=== PATIENT | male | born 1995 | race Two or more races ===

== ENCOUNTER 2023-07-21 05:20 | Emergency (ER) | payer BC, MEDICAID ==
[~2023-07-21] VITALS: Ht 175.3 cm; Wt 109.0 kg
[2023-07-21] MEDS ORDERED: TETANUS-DIPTH-ACEL PERTUSSIS 0.5ML SYR Tdap IM ONE (07:30)
[2023-07-21] MEDS ORDERED: NEOMYCIN-BACITRACIN-POLYM UNITDOSE PKG TOP OINT TOP ONE (07:30)
[2023-07-21] MEDS ORDERED: LIDOCAINE 2%HCL (LOCAL ANESTH.) INJ 20ML MDV ID ONE (07:30)
[2023-07-21] MEDS ORDERED: CEFD300C2 PO (08:24)
[2023-07-21] MEDS ORDERED: BACI1OIN45 EX (08:24)
[2023-07-21 08:25] VITALS: BP 119/71; PULSE 121; RESP 17; TEMP 97.9; O2SAT 98
== END 2023-07-21 08:41 | disposition home or self-care (01) ==
LOC: EDBD 05:20 → ER 05:20
DX: S01.511A Laceration without foreign body of lip, initial encounter (principal); Z79.899 Other long term (current) drug therapy; W22.8XXA Striking against or struck by other objects, initial encounter; Y93.89 Activity, other specified; Y92.89 Other specified places as the place of occurrence of the external cause; Y99.8 Other external cause status
CPT/HCPCS: 12011; 12051; 70450; 90471; 90715

== ENCOUNTER 2025-01-10 15:26 | Emergency (ER) | payer BC, MEDICAID ==
[~2025-01-10] VITALS: Ht 175.3 cm; Wt 90.0 kg
[~2025-01-10 15:26] MED LIST: BACI1OIN45 EX; CEFD300C2 PO
--- NOTE | 2025-01-10 15:48 | ED.PDOC ---
HPI Comments 29 year old male presents to the ED with a chief complaint of RT hand laceration onset today (01/10/25). Patient was trying to push ice into a glass jar, glass broke. Patient is currently experiencing laceration on RT 5th digit, thumb and palm. Denies any PMHx as well as fevers, chills, nausea, vomiting, diarrhea, headache, LOC. No other symptoms or modifying factors present at this time. Chief Complaint: Laceration Time Seen by MD: 15:40 Primary Care Provider: NONE Reviewed Notes: Nurses Notes, Medications, Allergies Allergies: Coded Allergies: NO KNOWN ALLERGIES (Unverified , 01/10/25) Home Meds Active Scripts Bacitracin-Polymyxin B (Neosporin [id number] Unit/gm) 1 Oin Oin, 1 OIN EX TID for 7 Days, #30 OIN Prov:OFELIA ASENCIO MD 07/21/23 Cefdinir (Cefdinir) 300 Mg Cap, 1 CAP PO BID, #14 CAP Prov:OFELIA ASENCIO MD 07/21/23 Information Source: Patient Mode of Arrival: Ambulatory Severity: Moderate Severity of Laceration: Controlled Bleeding Complexity: Simple Timing: Hours Prehospital treatment: None Laceration Location: Hand, Digit #1, Digit #5 Mechanism: Glass Last Tetanus: UTD Laceration Length (cm): 4 Skin Type: Linear Depth of Injury: Skin Tendon Injury: 0% Capillary Refill: < 3 seconds Tender: Moderate Past Medical History PAST MEDICAL HISTORY: Denies Surgical History: Denies all surgeries Family History Family History: Reviewed,noncontributory to illness Social History Smoker: Non-Smoker Alcohol: Occasionally Drugs: Denies Drug Use Lives In: Home Constitutional: denies: chills, diaphoresis, fatigue, fever, malaise, sweats, weakness, others EENTM: denies: blurred vision, double vision, ear bleeding, ear discharge, ear drainage, ear pain, ear ringing, eye pain, eye redness, hearing loss, mouth pain, mouth swelling, nasal discharge, nose bleeding, nose congestion, nose pain, photophobia, tearing, throat pain, throat swelling, voice changes, others Respiratory: denies: cough, hemoptysis, orthopnea, SOB at rest, shortness of breath, SOB with excertion, stridor, wheezing, others Cardiovascular: denies: chest pain, dizzy spells, diaphoresis, Dyspnea on exertion, edema, irregular heart beat, left arm pain, lightheadedness, palpitations, PND, syncope, others Gastrointestinal: denies: abdomen distended, abdominal pain, blood streaked bowels, constipated, diarrhea, dysphagia, difficulty swallowing, hematemesis, melena, nausea, poor appetite, poor fluid intake, rectal bleeding, rectal pain, vomiting, others Genitourinary: denies: burning, dysuria, flank pain, frequency, hematuria, incontinence, penile discharge, penile sore, pain, testicle pain, testicle swelling, urgency, others Neurological: denies: dizziness, fainting, headache, left sided numbness, left sided weakness, numbness, paresthesia, pre-existing deficit, right sided numbness, right sided weakness, seizure, speech problems, tingling, tremors, weakness, others Musculoskeletal: denies: back pain, gout, joint pain, joint swelling, muscle pain, muscle stiffness, neck pain, others Integumetry: reports: laceration (RT hand); denies: bruises, change in color, change in hair/nails, dryness, lesions, lumps, rash, wounds, others Allergic/Immunocompromised: denies: Difficulty Healing, Frequent Infections, Hives, Itching, others Hematologic/Lymphatic: denies: anemia, blood clots, easy bleeding, easy bruising, swollen glands, others Endocrine: denies: excessive hunger, excessive sweating, excessive thirst, excessive urination, flushing, intolerance to cold, intolerance to heat, unexplained weight gain, unexplained weight loss, others Psychiatric: denies: anxiety, bipolar disorder, depression, hopeless, panic disorder, schizophrenia, sleepless, suicidal, others All Other Systems: Reviewed and Negative Physical Exam General Appearance: Normal HEENT: Normal ENT Inspection, Pharynx Normal, TMs Normal Neck: Full Range of Motion, Non-Tender, Normal, Normal Inspection Respiratory: Chest Non-Tender, Lungs Clear, No Accessory Muscle Use, No R espiratory Distress, Normal Breath Sounds Cardiovascular: No Edema, No JVD, No Murmur, No Gallop, Normal Peripheral Pulses, Regular Rate/Rhythm Breast Exam: Deferred Gastrointestinal: No Organomegaly, Non Tender, No Pulsatile Mass, Normal Bowel Sounds, Soft Genitalia: Deferred Pelvic: Deferred Rectal: Deferred Extremities: No calf tenderness, Normal capillary refill, Normal inspection, Normal range of motion, Non-tender, No pedal edema Musculoskeletal : Apperance: Normal Neurologic: Alert, wire straightener II-XII nml as Tested, No Motor Deficits, Normal Affect, Normal Mood, No Sensory Deficits Cerebellar Function: Normal Reflexes: Normal Skin: Dry, Lacerations (4 cm laceration RT 5th digit, 1.5 cm laceration on RT thumb, 1.5 cm laceration on RT palm), Warm Lymphatic: No Adenopathy Was a procedure done? Was a procedure done?: Yes Sedation Sedation?: No Laceration Repair : Location RT 5th digit, thumb, palm Length 4 cm on 5th digit, 1.5 cm thumb, 1.5 cm palm Anesthetic: Lidocaine (4 ccs) Laceration Repair Prep: Saline, Betadine, Shur-Clens, by Irrigation, Manual Scrub Laceration Repair Wound Comple: epidermis/dermis repair Laceration Repair: Number of sutures (2 sutures on thumb, 1 suture on palm, 7 sutures on 5th digit ), Nylon (5.0), Simple Informed consent obtained: Yes Risks, benefits, and alternati: Yes Differential diagnosis Generic Laceration: Tendon Injury, Abrasion/Contusion, Laceration X-Ray, Labs, Meds, VS Vital Signs Date Time Temp Pulse Resp B/P (MAP) Pulse Ox O2 Delivery O2 Flow Rate FiO2 01/10/25 15:31 97.6 119 15 137/96 (110) 100 97.6 X-Ray, Labs, Meds, VS Comment Imaging: X-rays and CT scans were reviewed and interpreted by this provider, imaging shows no fractures and no pathological disease. Pending radiology review. Laboratory: Labs reviewed and interpreted by this provider. No significant abnormalities noted. Patient has prior medical visits reviewed. Med reconciliation performed Vital signs reviewed Time of 1ST Reevaluation: 16:10 Reevaluation 1ST: Unchanged Patient Education/Counseling: Diagnosis, Treatment, Need For Follow Up (Follow up in 7-10 days for suture removal) Family Education/Counseling: No Family Present Departure 1 Departure Time of Disposition: 16:26 Impression: Primary Impression: Hand laceration Qualified Codes: S61.411A - Laceration without foreign body of right hand, initial encounter Disposition: HOME / SELF CARE / HOMELESS Condition: Fair Discharged With: Self Critical Care Note Critical Care Time?: No Stability Stability form required: No Heart Score Heart Score: Heart Score Response (Comments) Value History N/A 0 EKG N/A 0 Age N/A 0 Risk Factors N/A 0 Troponin N/A 0 Total 0 I personally scribed for DIDI SIMSP ([email or web address]) on 01/10/25 at 15:48. Electronically submitted by Lorna Wynn ([email or web address]). I personally scribed for DIDI SIMS PAPER MACHINE OPERATOR ([email or web address]) on 01/10/25 at 16:12. Electronically submitted by Lorna Wynn ([email or web address]). DIDI SIMS Jan 10, 2025 15:48
[2025-01-10] MEDS: LIDOCAINE 1% HCL (LOCAL ANESTH.) INJ 20ML MDV IJ ONE (15:50)
[2025-01-10] MEDS: LIDOCAINE 1% HCL (LOCAL ANESTH.) INJ 20ML MDV ONE (15:50)
[2025-01-10 17:11] VITALS: BP 130/89; PULSE 102; RESP 20; TEMP 97.6; O2SAT 96
== END 2025-01-10 17:18 | disposition home or self-care (01) ==
LOC: ER 15:26
DX: S61.411A Laceration without foreign body of right hand, initial encounter (principal); W25.XXXA Contact with sharp glass, initial encounter; Y93.89 Activity, other specified; Y92.89 Other specified places as the place of occurrence of the external cause; Y99.8 Other external cause status
CPT/HCPCS: 12002; 99283; J2003

== ENCOUNTER 2025-01-20 07:52 | Emergency (ER) | payer MEDICAID ==
[~2025-01-20] VITALS: Ht 175.3 cm; Wt 95.6 kg
--- NOTE | 2025-01-20 08:05 | ED.PDOC ---
History of Present Illness HPI Comments THIS IS A 29 YEAR OLD MALE PRESENTING TO THE ED WITH CHIEF COMPLAINT OF SUTURE REMOVAL. PATIENT REPORTS THAT HE HAD SUTURES PLACED INTO HIS RIGHT HAND 10 DAYS AGO, ADVISED TO COME BACK AFTER THAT AMOUNT OF TIME FOR REMOVAL OF THEM. PATIENT DENIES ANY BLEEDING OR DISCHARGE. NO FURTHER SYMPTOMS AT THIS TIME. Chief Complaint: Suture Removal Time Seen by MD: 08:04 Primary Care Provider: NONE Reviewed Notes: Nurses Notes, Medications, Allergies Allergies: Coded Allergies: NO KNOWN ALLERGIES (Unverified , 01/10/25) Home Meds Active Scripts Bacitracin-Polymyxin B (Neosporin 500-71729 Unit/gm) 1 Oin Oin, 1 OIN EX TID for 7 Days, #30 OIN Prov:OFELIA ASENCIO MD 07/21/23 Cefdinir (Cefdinir) 300 Mg Cap, 1 CAP PO BID, #14 CAP Prov:OFELIA ASENCIO MD 07/21/23 Information Source: Patient Mode of Arrival: Ambulatory Severity: Mild Timing: Days Duration: Since onset Prehospital treatment: None Medication Refill: For: Other (SUTURE REMOVAL) Past Medical History PAST MEDICAL HISTORY: Denies Surgical History: Denies all surgeries Family History Family History: Reviewed,noncontributory to illness Social History Smoker: Non-Smoker Alcohol: Occasionally Drugs: Denies Drug Use Lives In: Home Constitutional: denies: chills, diaphoresis, fatigue, fever, malaise, sweats, weakness, others EENTM: denies: blurred vision, double vision, ear bleeding, ear discharge, ear drainage, ear pain, ear ringing, eye pain, eye redness, hearing loss, mouth pain, mouth swelling, nasal discharge, nose bleeding, nose congestion, nose pain, photophobia, tearing, throat pain, throat swelling, voice changes, others Respiratory: denies: cough, hemoptysis, orthopnea, SOB at rest, shortness of breath, SOB with excertion, stridor, wheezing, others Cardiovascular: denies: chest pain, dizzy spells, diaphoresis, Dyspnea on exertion, edema, irregular heart beat, left arm pain, lightheadedness, palpitations, PND, syncope, others Gastrointestinal: denies: abdomen distended, abdominal pain, blood streaked bowels, constipated, diarrhea, dysphagia, difficulty swallowing, hematemesis, melena, nausea, poor appetite, poor fluid intake, rectal bleeding, rectal pain, vomiting, others Genitourinary: denies: burning, dysuria, flank pain, frequency, hematuria, incontinence, penile discharge, penile sore, pain, testicle pain, testicle swelling, urgency, others Neurological: denies: dizziness, fainting, headache, left sided numbness, left sided weakness, numbness, paresthesia, pre-existing deficit, right sided numbness, right sided weakness, seizure, speech problems, tingling, tremors, weakness, others Musculoskeletal: denies: back pain, gout, joint pain, joint swelling, muscle pain, muscle stiffness, neck pain, others Integumetry: reports: laceration (RIGHT PALM REPAIRED. ), others (SUTURES TO RIGHT HAND); denies: bruises, change in color, change in hair/nails, dryness, lesions, lumps, rash, wounds Allergic/Immunocompromised: denies: Difficulty Healing, Frequent Infections, Hives, Itching, others Hematologic/Lymphatic: denies: anemia, blood clots, easy bleeding, easy bruising, swollen glands, others Endocrine: denies: excessive hunger, excessive sweating, excessive thirst, excessive urination, flushing, intolerance to cold, intolerance to heat, unexplained weight gain, unexplained weight loss, others Psychiatric: denies: anxiety, bipolar disorder, depression, hopeless, panic disorder, schizophrenia, sleepless, suicidal, others All Other Systems: Reviewed and Negative Physical Exam General Appearance: No Apparent Distress, Normal HEENT: Normal ENT Inspection, PERRL/EOMI, Pharynx Normal, TMs Normal Neck: Full Range of Motion, Non-Tender, Normal, Normal Inspection Respiratory: Chest Non-Tender, Lungs Clear, No Accessory Muscle Use, No Respiratory Distress, Normal Breath Sounds Cardiovascular: No Edema, No JVD, No Murmur, No Gallop, Normal Peripheral Pulses, Regular Rate/Rhythm Breast Exam: Deferred Gastrointestinal: No Organomegaly, Non Tender, No Pulsatile Mass, Normal Bowel Sounds, Soft Genitalia: Deferred Pelvic: Deferred Rectal: Deferred Extremities: No calf tenderness, Normal capillary refill, Normal inspection, Normal range of motion, Non-tender, No pedal edema Musculoskeletal : Apperance: Normal Neurologic: Alert, director of labor relations II-XII nml as Tested, No Motor Deficits, Normal Affect, Normal Mood, No Sensory Deficits Cerebellar Function: Normal Reflexes: Normal Skin: Dry, Lacerations (RIGHT PALM REPAIRED, HEALED, NO INFECTION SIGNS. ), Normal Color, Warm Peripheral Pulses: 2+ carotid (R), 2+ carotid (L) Lymphatic: No Adenopathy Was a procedure done? Was a procedure done?: No Differential Dx Considerations may include: SUTURE REMOVAL OF RIGHT PALM X-Ray, Labs, Meds, VS Vital Signs Date Time Temp Pulse Resp B/P (MAP) Pulse Ox O2 Delivery O2 Flow Rate FiO2 01/20/25 07:54 98.5 117 18 128/94 99 98.5 X-Ray, Labs, Meds, VS Comment EXTERNAL MEDICAL RECORDS REVIEWED: [NONE] INDEPENDENT HISTORIANS: [NONE] SOCIAL DETERMINANTS OF HEALTH: [NONE] LABS ORDERED: NONE REVIEWED AND INTERPRETED RESULTS: NONE IMAGING ORDERED: NONE TREATMENTS ORDERED: SUTURE REMOVAL TO RIGHT HAND PROCEDURES PERFORMED: NONE CRITICAL CARE TIME: NONE I HAVE DISCUSSED THE PATIENT WITH THE ATTENDING PHYSICIAN DR. HERRERA AND HE AGREES WITH THE PATIENT'S PLAN OF CARE AND DISPOSITION. BASED ON HISTORY OF PRESENT ILLNESS, AND PHYSICAL EXAM, PATIENT WILL BE DISCHARGED HOME. DISCUSSED PLAN FOR DISCHARGE HOME. SHARED DECISION MAKING: DISCUSSED WITH PATIENT THAT THEIR WORKUP WAS NORMAL. PATIENT INSTRUCTED TO FOLLOW UP WITH PRIMARY CARE PROVIDER IN 1-2 DAYS FOR RE- EVALUATION OF SYMPTOMS. PATIENT VERBALIZES UNDERSTANDING TO RETURN TO ED FOR NEW OR WORSENING SYMPTOMS OR IF FOLLOW UP WITH PCP CANNOT BE OBTAINED. PATIENT FEELS COMFORTABLE GOING HOME AT THIS TIME. ALL QUESTIONS ADDRESSED AT TIME OF DISCHARGE. Time of 1ST Reevaluation: 08:13 Reevaluation 1ST: Improved Patient Education/Counseling: Diagnosis, Treatment, Need For Follow Up Family Education/Counseling: Diagnosis, Treatment, No Family Present Medical Screening: No EMC Exist At This Time SEPSIS Sepsis Screen Date sepsis recognized/suspect: Jan 20, 2025 Time Sepsis recognized/suspect: 0757 Recent Procedure: No On Antibiotic Therapy: No Respiratory Rate >20: No Heart Rate >90: No Temp<36 C (96.8 F) or >38.3 C: No SBP <90 or MAP <65 mmHG: No New Acute Mental Status Change: No Is the patient on CPAP, BIPAP,: No Vital Signs Date Time Temp Pulse Resp B/P (MAP) Pulse Ox O2 Delivery O2 Flow Rate FiO2 01/20/25 07:54 98.5 117 18 128/94 99 98.5 Departure 1 Departure Time of Disposition: 08:13 Impression: Primary Impression: Visit for suture removal Disposition: HOME / SELF CARE / HOMELESS Condition: Stable Additional Instructions: FOLLOW-UP WITH PCP IN 1 TO 2 DAYS. TAKE MEDICATIONS PRESCRIBED. RETURN TO ED FOR ANY NEW OR WORSENING SYMPTOMS. Discharged With: Self Critical Care Note Critical Care Time?: No Stability Stability form required: No Heart Score Heart Score: Heart Score Response (Comments) Value History N/A 0 EKG N/A 0 Age N/A 0 Risk Factors N/A 0 Troponin N/A 0 Total 0 I personally scribed for TERRY JAVED ([email or web address]) on 01/20/25 at 08:05. Electronically submitted by Stephen Abrams ([email or web address]). I personally scribed for TERRY JAVED ([email or web address]) on 01/20/25 at 08:08. El ectronically submitted by Stephen Abrams ([email or web address]). I personally scribed for TERRY JAVED ([email or web address]) on 01/20/25 at 08:11. Elec tronically submitted by Stephen Abrams ([email or web address]). TERRY JAVED Jan 20, 2025 08:05
[2025-01-20 08:10] VITALS: BP 128/94; PULSE 117; RESP 18; TEMP 98.5; O2SAT 99
== END 2025-01-20 08:15 | disposition home or self-care (01) ==
LOC: ER 07:52
DX: S61.411D Laceration without foreign body of right hand, subsequent encounter (principal); F10.90 Alcohol use, unspecified, uncomplicated; Z79.899 Other long term (current) drug therapy; Z48.02 Encounter for removal of sutures; X58.XXXD Exposure to other specified factors, subsequent encounter; Y90.9 Presence of alcohol in blood, level not specified

== ENCOUNTER 2025-06-14 11:43 | Emergency (ER) | payer MEDICAID ==
[~2025-06-14] VITALS: Ht 175.3 cm; Wt 96.9 kg
[2025-06-14] MEDS: HYDROcodone-ACET 10/325MG TAB PO ONE (12:50)
--- NOTE | 2025-06-14 13:00 | DVH ---
CHEST RADIOGRAPH INDICATION: fall TECHNIQUE: XY CHEST TWO VIEWS ROUTINE Comparison: None FINDINGS: The cardiac silhouette is unremarkable. The lungs demonstrate no pulmonary airspace consolidation. The pulmonary vasculature is mildly prominent. There is no pleural effusion. There is no pneumothorax. IMPRESSION: Mild pulmonary vasculature congestion.
--- NOTE | 2025-06-14 13:13 | ED.PDOC ---
History of Present Illness HPI Comments 30 y/o obese M presents with c/c of nonradiating, midsternal chest wall pain s/p mechanical fall and injury. Patient reports on falling and injuring himself in his bathroom's shower, last night, after returning home intoxicated on alcohol. Denial of any lost of consciousness or additional injuries or acute symptoms. Pain is a 10/10 in severity. No reported history of previous injuries or cardiac disease. Chief Complaint: Fall Injury Time Seen by MD: 12:20 Primary Care Provider: NONE Reviewed Notes: Nurses Notes, Medications, Allergies Allergies: Coded Allergies: NO KNOWN ALLERGIES (Unverified , 01/10/25) Home Meds Active Scripts Bacitracin-Polymyxin B (Neosporin [id number] Unit/gm) 1 Oin Oin, 1 OIN EX TID for 7 Days, #30 OIN Prov:OFELIA ASENCIO MD 07/21/23 Cefdinir (Cefdinir) 300 Mg Cap, 1 CAP PO BID, #14 CAP Prov:FOELIA ASENCIO MD 07/21/23 Information Source: Patient Mode of Arrival: Ambulatory Severity: Moderate Timing: Hours Duration: Since onset Prehospital treatment: None Past Medical History PAST MEDICAL HISTORY: Denies Surgical History: Denies all surgeries Family History Family History: Reviewed,noncontributory to illness, Family hx of lung radha (asthma ) Social History Smoker: Non-Smoker Alcohol: Occasionally Drugs: Denies Drug Use Lives In: Home Constitutional: denies: chills, diaphoresis, fatigue, fever, malaise, sweats, weakness, others EENTM: denies: blurred vision, double vision, ear bleeding, ear discharge, ear drainage, ear pain, ear ringing, eye pain, eye redness, hearing loss, mouth pain, mouth swelling, nasal discharge, nose bleeding, nose congestion, nose pain, photophobia, tearing, throat pain, throat swelling, voice changes, others Respiratory: denies: cough, hemoptysis, orthopnea, SOB at rest, shortness of breath, SOB with excertion, stridor, wheezing, others Cardiovascular: reports: chest pain (chest wall ); denies: dizzy spells, diapho resis, Dyspnea on exertion, edema, irregular heart beat, left arm pain, lightheadedness, palpitations, PND, syncope, others Gastrointestinal: denies: abdomen distended, abdominal pain, blood streaked bowels, constipated, diarrhea, dysphagia, difficulty swallowing, hematemesis, melena, nausea, poor appetite, poor fluid intake, rectal bleeding, rectal pain, vomiting, others Genitourinary: denies: burning, dysuria, flank pain, frequency, hematuria, incontinence, penile discharge, penile sore, pain, testicle pain, testicle swelling, urgency, others Neurological: denies: dizziness, fainting, headache, left sided numbness, left sided weakness, numbness, paresthesia, pre-existing deficit, right sided numbness, right sided weakness, seizure, speech problems, tingling, tremors, weakness, others Musculoskeletal: reports: others (chest wall pain ); denies: back pain, gout, joint pain, joint swelling, muscle pain, muscle stiffness, neck pain Integumetry: denies: bruises, change in color, change in hair/nails, dryness, laceration, lesions, lumps, rash, wounds, others Allergic/Immunocompromised: denies: Difficulty Healing, Frequent Infections, Hives, Itching, others Hematologic/Lymphatic: denies: anemia, blood clots, easy bleeding, easy bruising, swollen glands, others Endocrine: denies: excessive hunger, excessive sweating, excessive thirst, excessive urination, flushing, intolerance to cold, intolerance to heat, unexplained weight gain, unexplained weight loss, others Psychiatric: denies: anxiety, bipolar disorder, depression, hopeless, panic disorder, schizophrenia, sleepless, suicidal, others All Other Systems: Reviewed and Negative Physical Exam General Appearance: Mild Distress HEENT: Normal ENT Inspection, Pharynx Normal, TMs Normal Neck: Full Range of Motion, Non-Tender, Normal, Normal Inspection Respiratory: Chest Non-Tender, Lungs Clear, No Accessory Muscle Use, No Respiratory Distress, Normal Breath Sounds Cardiovascular: No Edema, No JVD, No Murmur, No Gallop, Normal Peripheral Pulses, Regular Rate/Rhythm Breast Exam: Deferred Gastrointestinal: No Organomegaly, Non Tender, No Pulsatile Mass, Normal Bowel Sounds, Soft Genitalia: Deferred Pelvic: Deferred Rectal: Deferred Extremities: No calf tenderness, Normal capillary refill, Normal inspection, Normal range of motion, Non-tender, No pedal edema Musculoskeletal : Location: Bilateral Extremity Location: Chest Apperance: Limited ROM, Tenderness: Moderate Neurologic: Alert, floral manager II-XII nml as Tested, No Motor Deficits, Normal Affect, Normal Mood, No Sensory Deficits Cerebellar Function: Normal Reflexes: Normal Skin: Dry, Normal Color, Warm Lymphatic: No Adenopathy Was a procedure done? Was a procedure done?: No Differential Dx Considerations may include: fractures, contusions, sprain, strain, musculoskeletal pain, atypical chest pain, UT, PE, ACS, angina, anxiety, GERD, among others X-Ray, Labs, Meds, VS Vital Signs Date Time Temp Pulse Resp B/P (MAP) Pulse Ox O2 Delivery O2 Flow Rate FiO2 06/14/25 11:46 97.9 142 17 121/84 95 97.9 Current Medications Medications (Trade) Dose Ordered Sig/Anneliese Route Start Time Stop Time Status Last Admin Acetaminophen/ Hydrocodone Bitart ([place] 10/325MG Tab) 1 tab ONCE ONCE PO 06/14/25 12:30 06/14/25 12:31 DC 06/14/25 12:50 PROCEDURE(s): CXR2 - CHEST TWO VIEWS ROUTINE IMPRESSION: Mild pulmonary vasculature congestion. At this time, the patient is being discharged with a diagnosis of musculoskeletal chest pain The patient will return to the emergency department's condition worsens The patient was given [place] for the pain The patient will return to the emergency department's condition worsens The patient understands and agrees with the management. Images Reviewed?: Images reviewed and evaluated by me Time of 1ST Reevaluation: 12:50 Reevaluation 1ST: Unchanged Patient Education/Counseling: Diagnosis, Treatment, Prognosis, Need For Follow Up Family Education/Counseling: No Family Present SEPSIS Sepsis Screen Date sepsis recognized/suspect: Jun 14, 2025 Time Sepsis recognized/suspect: 1148 Recent Procedure: No On Antibiotic Therapy: No Respiratory Rate >20: No Heart Rate >90: Yes Temp<36 C (96.8 F) or >38.3 C: No SBP <90 or MAP <65 mmHG: No New Acute Mental Status Change: No Is the patient on CPAP, BIPAP,: No Physician Orders Chest Two Views Routine (06/14/25 12:29) Vital Signs Date Time Temp Pulse Resp B/P (MAP) Pulse Ox O2 Delivery O2 Flow Rate FiO2 06/14/25 11:46 97.9 142 17 121/84 95 97.9 Medications Medications Dose Ordered Sig/Anneliese Route Start Time Stop Time Status Last Admin Dose Admin Acetaminophen/ Hydrocodone Bitart 1 tab ONCE ONCE PO 06/14/25 12:30 06/14/25 12:31 DC 06/14/25 12:50 Departure 1 Departure Time of Disposition: 13:40 Impression: Primary Impression: Musculoskeletal chest pain Disposition: HOME / SELF CARE / HOMELESS Condition: Stable Discharged With: Self Critical Care Note Critical Care Time?: No Stability Stability form required: No Heart Score Heart Score: Heart Score Response (Comments) Value History N/A 0 EKG N/A 0 Age N/A 0 Risk Factors N/A 0 Troponin N/A 0 Total 0 I personally scribed for NATI KRISHNAN MD ([email or web address]) on 06/14/25 at 13:13. Electronically submitted by Oliver Gonsales ([email or web address]). NATI KRISHNAN MD Jun 14, 2025 13:13
[2025-06-14 14:23] VITALS: BP 118/74; PULSE 118; RESP 16; TEMP 97.7; O2SAT 96
== END 2025-06-14 14:24 | disposition home or self-care (01) ==
LOC: ER 11:43
DX: R07.89 Other chest pain (principal); F10.90 Alcohol use, unspecified, uncomplicated; E66.9 Obesity, unspecified; Z79.899 Other long term (current) drug therapy; Z68.31 Body mass index [BMI] 31.0-31.9, adult
CPT/HCPCS: 71046